=== PATIENT | female | born 1965 | race Caucasian/White ===

== ENCOUNTER → 2016-07-18 | Outpatient (CLI) | payer OTHER ==
[~2016-07-18] MED LIST: ALBU1AER9 INH; FLUT0.15 NAE; LEVO-253 PO; LSN/10125 PO; SIMV20TA5 PO; SNG10 PO
[2016-07-18 12:33] LABS: BLOOD UREA NITROGEN 9 mg/dl (7-18); BUN/CREATININE RATIO 11.1 (10-20); CARBON DIOXIDE 23 mmol/L (21-32); CHLORIDE 107 mmol/L (98-107); CREATININE 0.81 mg/dl (0.60-1.20); GLUCOSE 124 mg/dl (70-99); POTASSIUM 3.5 mmol/L (3.5-5.1); SODIUM 141 mmol/L (136-145)
== END | disposition home or self-care (01) ==
LOC: C.LABPVFM 09:39
PROVIDERS: ATTEND Family Medicine
DX: I10 Essential (primary) hypertension (principal)

== ENCOUNTER → 2017-01-24 | Outpatient (CLI) | payer OTHER ==
--- NOTE | 2017-01-25 14:05 | MAMMOGRAPHY REPORT ---
BILATERAL DIGITAL SCREENING MAMMOGRAM TOMOSYNTHESIS WITH CAD: 01/24/2017 CLINICAL HISTORY: Routine screening. TECHNIQUE: Breast tomosynthesis in addition to standard 2D mammography was performed. Current study was also evaluated with a Computer Aided Detection (CAD) system. COMPARISON: Comparison is made to exams dated: 10/21/2015 mammogram, 05/26/2014 mammogram, 04/22/2013 mammogram, 04/16/2012 mammogram, 10/09/2011 mammogram, and 01/10/2011 mammogram - [facility]. BREAST COMPOSITION: The tissue of both breasts is almost entirely fatty. FINDINGS: There are 2 newly visualized focal asymmetries in the anterior right breast. The first me asuring 3.8 mm is located in the 6:00 anterior breast, 2.3 cm distal to the nipple. The second in th e 3:00 anterior breast measures 4.5 mm and is located 3.6 cm distal to the nipple. No obvious associ ated architectural distortion or calcification. Further characterization with spot compression tomos ynthesis views and possible ultrasound are recommended. No other suspicious mass, architectural distortion or cluster of microcalcifications is seen bilatera lly. IMPRESSION: ACR BI-RADS CATEGORY 0: INCOMPLETE EVALUATION: NEED ADDITIONAL IMAGING EVALUATION The 2 newly visualized subcentimeter focal asymmetries in the anterior right breast needs additional evaluation. The patient will be called to schedule an appointment. Approximately 10% of breast cancers are not detected with mammography. A negative mammographic report should not delay biopsy if a clinically suggestive mass is present. Heydi Whipple M.D. ay/:01/24/2017 15:26:27 Rn Postpartum: Jonas MCKENZIE(Jadon)(M), [facility] letter sent: Addl Imaging 0 BI-RADS Code: ACR BI-RADS Category 0: Incomplete Evaluation: Need Additional Imaging Evaluation
== END | disposition home or self-care (01) ==
LOC: C.MAMM 14:24
PROVIDERS: ATTEND Family Medicine
DX: Z12.31 Encounter for screening mammogram for malignant neoplasm of breast (principal); N64.89 Other specified disorders of breast

== ENCOUNTER → 2017-02-08 | Outpatient (CLI) | payer OTHER ==
--- NOTE | 2017-02-08 12:39 | MAMMOGRAPHY REPORT ---
UNILATERAL RIGHT DIGITAL DIAGNOSTIC MAMMOGRAM TOMOSYNTHESIS AND TARGETED RIGHT ULTRASOUND: 02/08/2017 CLINICAL HISTORY: Callback from screening mammogram for right breast asymmetries. TECHNIQUE: Breast tomosynthesis in addition to standard 2D mammography was performed. Spot compress ion right CC and MLO 2-D and tomosynthesis images were obtained. COMPARISON: Comparison is made to exams dated: 01/24/2017 mammogram, 10/21/2015 ultrasound, 10/21/2015 mammogram, 05/26/2014 mammogram, 04/22/2013 mammogram, and 04/16/2012 mammogram - [facility]. BREAST COMPOSITION: The tissue of the right breast is almost entirely fatty. FINDINGS: Spot compression views demonstrate an oval circumscribed 4 mm mass within the right medial breast middle depth on the cc view, projecting at approximately 2 to 3:00 on the MLO view. Addition ally, there is an oval circumscribed 4 mm mass within the right 6:00 breast anteriorly. When compare d to prior mammograms, the masses do not appear significantly changed compared to the 05/26/2014 exam . Given the long-term stability, the masses are felt to be benign. Targeted ultrasound was performed of the area of the mammographic masses. In the right breast at 2:0 0, 4 cm from the nipple, there is an oval circumscribed nearly anechoic 3 x 2 mm mass. This is felt to correspond with the more medial mass and is benign given long-term mammographic stability and like ly represents a cyst. In the right breast at 6:00 periareolar region, there is an oval circumscribed anechoic 2 x 2 mm mass. This corresponds with the other mammographic mass which has been stable mart mographically dating back to the 2013 exam and is benign and compatible with a cyst. IMPRESSION: ACR BI-RADS CATEGORY 2: BENIGN, TARGETED ULTRASOUND ACR BI-RADS CATEGORY 2: BENIGN Two small circumscribed benign-appearing masses in the right 2:00 and 6:00 breast are stable mammogra phically dating back to the 2013 exam, and are considered benign given long-term stability and consis tent with small cysts. There is no mammographic or targeted sonographic evidence of malignancy. A 1 year screening mammogram is recommended. The patient has been verbally notified of the results. Approximately 10% of breast cancers are not detected with mammography. A negative mammographic report should not delay biopsy if a clinically suggestive mass is present. Suri Sarmiento M.D. ah/:02/08/2017 11:28:01 Integration Developer: Abbey PRAKASH)(Kary), [facility] letter sent: Normal 1/2 BI-RADS Code: ACR BI-RADS Category 2: Benign Ultrasound BI-RADS: ACR BI-RADS Category 2: Benign
== END | disposition home or self-care (01) ==
LOC: C.MAMM 10:32
PROVIDERS: ATTEND Family Medicine
DX: R92.8 Other abnormal and inconclusive findings on diagnostic imaging of breast (principal); N63 Unspecified lump in breast

== ENCOUNTER → 2017-02-13 | Outpatient (CLI) | payer OTHER ==
[2017-02-13 13:46] LABS: ALT/SGPT 29 U/L (12-78); AST/SGOT 16 U/L (15-37); BLOOD UREA NITROGEN 8 mg/dl (7-18); BUN/CREATININE RATIO 9.9 (10-20); CALCIUM 9.4 mg/dl (8.5-10.1); CARBON DIOXIDE 26 mmol/L (21-32); CHLORIDE 105 mmol/L (98-107); CHOLESTEROL 129 mg/dl (0-200); CREATININE 0.79 mg/dl (0.60-1.20); GLUCOSE 91 mg/dl (70-99); POTASSIUM 3.5 mmol/L (3.5-5.1); SODIUM 140 mmol/L (136-145)
[2017-02-13 13:49] LABS: CHOLESTEROL/HDL RATIO 3.7; HDL CHOLESTEROL 35 mg/dl; LDL CHOLESTEROL CALCULATED 80 mg/dl; TRIGLYCERIDES 70 mg/dl (0-150); VERY LOW DENSITY LIPOPROT CALC 14 mg/dl
== END | disposition home or self-care (01) ==
LOC: C.LABPVFM 09:53
PROVIDERS: ATTEND Family Medicine
DX: I10 Essential (primary) hypertension (principal); E78.2 Mixed hyperlipidemia

== ENCOUNTER → 2017-05-08 | Outpatient (CLI) | payer OTHER | END | disposition home or self-care (01) | LOC: C.PAPS 09:06 | PROVIDERS: ATTEND Nurse Practitioner | DX: Z12.4 Encounter for screening for malignant neoplasm of cervix (principal) ==